=== PATIENT | female | born 1970 | race Hispanic/Latino ===

== ENCOUNTER 2016-10-01 00:23 | Day surgery (SDC) | payer OTHER ==
[~2016-10-01] VITALS: Ht 157.5 cm; Wt 83.0 kg
[~2016-10-01 00:23] MED LIST: AMLO5TAB2 PO; LISI-567 PO; METO50TA3 PO; OMEP40CA36 PO; VITA-230 PO
[2016-10-01] MEDS ORDERED: fentaNYL-PF 50 mCg/mL 2 mL Inj IVPUSH PRN (06:00)
[2016-10-01] MEDS ORDERED: 0.9% Sodium Chloride 1,000 ML IV SCH (06:00)
[2016-10-01] MEDS ORDERED: Sodium Chloride LOK Flush 10 mL Syringe IV PRN (06:00)
[2016-10-01 12:59] VITALS: BP 131/74; PULSE 67; RESP 17; O2SAT 99
[2016-10-01 14:34] VITALS: BP_SYST 100; BP_SYST 102; BP_DIAS 56; BP_DIAS 59; PULSE 67; PULSE 76; O2SAT 96; O2SAT 97
[2016-10-01 14:44] VITALS: BP 99/57; PULSE 65; O2SAT 96
--- NOTE | 2016-10-01 14:53 | ENDO ---
[address] [address] ENDOSCOPY PROCEDURE PATIENT: BRUNA GUTIERREZ : 1970 MR#: [id number] ADMIT: 10/01/2016 JOB ID: [id number] DATE OF SERVICE: 10/01/2016 PROCEDURE: Esophagogastroduodenoscopy with biopsies and a colonoscopy. INDICATIONS: A 46-year-old female with epigastric pain of uncertain etiology. She additionally has altered bowel habits with a bowel movement about every 4-5 days. The family history is a little uncertain. Both EGD and colonoscopy are therefore pursued. EQUIPMENT: GIFH-180J and a PCFH-190DL SEDATION: 9 mg Versed and 150 mcg fentanyl. COMPLICATIONS: None identified. BOWEL PREPARATION: Very adequate. PROCEDURE INFORMATION: After the risks and benefits were explained, written and verbal informed consent was obtained. The patient was brought into the endoscopy suite and placed into the left lateral decubitus position. Sedation was achieved as above. The scope introduced into the mouth through the bite block, and advanced to the second portion of the duodenum. The scope was slowly withdrawn to carefully examine the mucosa for any defects or lesions. Retroflexed views were accomplished in the stomach. The stomach was decompressed. The scope removed from the patient who tolerated the procedure well. The patient was then turned around. A digital rectal examination accomplished. No significant pathology appreciated. The scope was introduced into the rectum and advanced to the cecum as identified by the appendiceal orifice and ileocecal valve. The terminal ileum was briefly accessed. The scope then slowly withdrawn to carefully examine the mucosa for any defects or lesions. Multiple direct views were made through the dentate line for exclusion of pathology. The colon was decompressed. The scope removed from the patient who tolerated the procedure well. FINDINGS: 1. Duodenum: This appeared visually normal from the bulb through to the second portion. 2. Stomach: No outlet obstruction. No ulcers. No mass lesions. Minimal nonspecific gastropathy was identified. There were several small diminutive benign appearing gastric polyps. One of these perhaps 5 mm in size was sampled for histopathologic analysis. Otherwise, retroflexed views of the LES were unremarkable. Histology will also help exclude H. pylori presence. 3. Esophagus: The squamocolumnar junction correlated with the top of the gastric folds. The GEJ was at about 37 cm from the incisors. No acute erosive changes. No strictures. No mass lesions. The remainder of the esophagus appeared unremarkable. Very subtle sliding hiatal hernia. 4. Terminal ileum: This appeared visually normal. 5. Colon: No evidence of any macroscopic colitis throughout. No significant polyps, mass lesions, or inflammatory features identified. There was, however, some scarring in the rectosigmoid region which possibly reflects prior stercoral ulceration from obstipation. There is no evidence of any active mucosal pathology at this time. ENDOSCOPIC DIAGNOSES: 1. Subtle sliding hiatal hernia. 2. Gastric polyps. 3. Otherwise visually unremarkable esophagogastroduodenoscopy. 4. Visually unremarkable colonoscopy and terminal ileoscopy. RECOMMENDATIONS: 1. Await histopathology. 2. If Helicobacter is found, it will need to be eradicated with standard triple therapy recognizing the patient's allergy to penicillin. 3. The patient is encouraged to engage in a rigorous bowel regimen and follow up in GI clinic on the results.
[2016-10-01 15:00] VITALS: BP 122/79; PULSE 71; O2SAT 98
--- NOTE | 2016-10-03 17:05 | PATH ---
SURGICAL PATHOLOGY Attending Physician:Brittanie Cruz CASE STATUS: Signed Out PATIENT NAME: BRUNA GUTIERREZ PID: [id number] : 1970 DATE COLLECTED:10/01/2016 00:00 SPECIMEN: Stomach, Polyp, Biopsy CLINICAL HISTORY: 1). GASTRIC POLYPS (RULE OUT H.PYLORI) FINAL DIAGNOSIS: 1.GASTRIC POLYPS, BIOPSY: FUNDIC GLAND POLYP. Negative for Helicobacter organisms. Negative for intestinal metaplasia. Negative for dysplasia and malignancy. ICD10 R10.13 GROSS DESCRIPTION: Received in formalin, labeled with the patient' s name and "gastric polyps", are two fragments of puri, soft tissue ranging from 0.2 x 0.1 x 0.1 cm to 0.2 x 0.2 x 0.1 cm. The fragments are totally submitted in one cassette. ([id number]) MICRO DESCRIPTION: See diagnosis. ICD-9 CODES: CPT CODES: 1: 35518 Electronically Signed Out William Byrd MD, Ph.D. [facility] Pathology [facility] [address], [place] [address] Technical component performed at [facility], [address] [place] [address] Ave[address], [place], [address]
== END 2016-10-01 23:59 | disposition home or self-care (01) ==
LOC: END 00:23
PROVIDERS: ATTEND Internal Medicine Gastroenterology
DX: K92.1 Melena (principal); K31.7 Polyp of stomach and duodenum; K44.9 Diaphragmatic hernia without obstruction or gangrene; R19.4 Change in bowel habit; R10.13 Epigastric pain; I10 Essential (primary) hypertension
CPT/HCPCS: 43239; 45378; 99153; G0500; J2250; J3010; J7030